=== PATIENT | female | born 1975 | race Caucasian/White ===

== ENCOUNTER 2016-11-12 11:45 | Emergency (ER) | payer OTHER ==
[~2016-11-12] VITALS: Ht 172.7 cm; Wt 134.4 kg
[2016-11-12 13:32] LABS: HEMATOCRIT 35.6 % (36.0-46.0); MCH 17.1 PG (29.0-34.0); MCV 63.2 FL (83-99); NRBC (%) 0.2 /100 WBC (0-0); RBC DIS.WIDTH-CV 21.4 % (11.8-14.6); RBC DIS.WIDTH-SD 45.1 % (39-53); RED BLOOD COUNT 5.63 M/uL (3.80-5.20)
[2016-11-12 13:35] LABS: CHLORIDE 107 mEq/L (99-109); POTASSIUM 3.5 mEq/L (3.7-5.4); SODIUM 141 mEq/L (136-147)
[2016-11-12 13:37] LABS: GLUCOSE 175 mg/dL (70-99)
[2016-11-12 13:38] LABS: ANION GAP 10 MEQ/L (2-14)
[2016-11-12 13:41] LABS: GFR ESTIMATE (CALCULATED) > 59 mL/min/
[2016-11-12 13:42] LABS: UREA NITROGEN (BUN) 16 mg/dL (9-23)
[2016-11-12 14:04] LABS: PLAT.SUFFICIENCY ADEQUATE; PLATELET COUNT 224 K/uL (156-360)
[2016-11-12] MEDS ORDERED: LEVAQUIN750 MG PO (16:51)
[2016-11-12] MEDS ORDERED: TUSSIONEX PENN473 ML PO (16:51)
[2016-11-12 17:45] VITALS: BP 131/97
[2016-11-12] MEDS ORDERED: OMEPRAZOLE40 M1 PO (17:58)
[2016-11-12] MEDS ORDERED: METOPROLOL TART25 MG PO (17:58)
[2016-11-12] MEDS ORDERED: METFORMIN HCL500 MG PO (17:59)
== END 2016-11-12 18:04 | disposition home or self-care (01) ==
LOC: EME 11:45
DX: J18.9 Pneumonia, unspecified organism (principal); E11.65 Type 2 diabetes mellitus with hyperglycemia; R11.0 Nausea; R19.7 Diarrhea, unspecified; I10 Essential (primary) hypertension; Z79.84 Long term (current) use of oral hypoglycemic drugs
CPT/HCPCS: 71020; 80048; 85027; 99281; 99284

== ENCOUNTER 2017-08-06 08:56 | Emergency (ER) | payer OTHER ==
[~2017-08-06] VITALS: Ht 172.7 cm; Wt 134.6 kg
[~2017-08-06 08:56] MED LIST: LEVAQUIN750 MG PO; METFORMIN HCL500 MG PO; METOPROLOL TART25 MG PO; OMEPRAZOLE40 M1 PO; TUSSIONEX PENN473 ML PO
[2017-08-06] MEDS ORDERED: MONTELUKAST SOD10 MG PO (09:24)
[2017-08-06 09:45] LABS: CHLORIDE 104 mEq/L (99-109); HEMATOCRIT 29.6 % (36.0-46.0); HEMOGLOBIN 7.7 G/DL (11.9-15.5); MCH 15.4 PG (29.0-34.0); MCV 59.2 FL (83-99); NRBC (%) 0.2 /100 WBC (0-0); RBC DIS.WIDTH-CV 21.6 % (11.8-14.6); RBC DIS.WIDTH-SD 42.6 % (39-53); SODIUM 137 mEq/L (136-147); WHITE BLOOD COUNT 8.5 K/uL (4.1-10.2)
[2017-08-06 09:46] LABS: GLUCOSE 148 mg/dL (70-99)
[2017-08-06 09:50] LABS: CREATININE 0.7 mg/dL (0.6-1.3); GFR ESTIMATE (CALCULATED) > 59 mL/min/
[2017-08-06 09:51] LABS: UREA NITROGEN (BUN) 10 mg/dL (9-23)
[2017-08-06 10:31] LABS: HEMATOLOGY COMMENT 1 SN; PLAT.SUFFICIENCY ADEQUATE; PLATELET COUNT 220 K/uL (156-360)
[2017-08-06 12:04] VITALS: BP 141/93
[2017-08-09 12:24] LABS: STOOL OCCULT BLD 1ST SPECIMEN NEGATIVE
== END 2017-08-06 12:05 | disposition home or self-care (01) ==
LOC: EME 08:56
PROVIDERS: Emergency Medicine
DX: D64.9 Anemia, unspecified (principal); I10 Essential (primary) hypertension; Z79.84 Long term (current) use of oral hypoglycemic drugs
CPT/HCPCS: 80048; 82272; 85027; 86850; 86900; 86901; 99281; 99283

== ENCOUNTER → 2017-09-06 | Outpatient (CLI) | payer OTHER ==
[~2017-09-06] VITALS: Ht 172.7 cm; Wt 136.0 kg
[~2017-09-06] MED LIST changes: +DIOVAN160 MG PO; +GLUCOPHAGE500 MG PO; +MONTELUKAST SOD10 MG PO; +SERTRALINE HCL50 MG PO; +SINGULAIR10 MG PO; +SYMBICORT60 INHALAT IH; +TOPROL XL25 MG PO; +VENTOLIN HFA18 GM IH
== END | disposition home or self-care (01) ==
LOC: AMB 11:30
PROVIDERS: Internal Medicine
DX: D50.9 Iron deficiency anemia, unspecified (principal); K44.9 Diaphragmatic hernia without obstruction or gangrene; K64.8 Other hemorrhoids; K21.9 Gastro-esophageal reflux disease without esophagitis; I10 Essential (primary) hypertension; E66.01 Morbid (severe) obesity due to excess calories; Z68.41 Body mass index [BMI] 40.0-44.9, adult; Z79.84 Long term (current) use of oral hypoglycemic drugs
CPT/HCPCS: 82948; 88305; J2250

== ENCOUNTER 2017-09-24 06:53 | Day surgery (SDC) | payer OTHER ==
[~2017-09-24] VITALS: Ht 172.7 cm; Wt 131.5 kg
[2017-09-24 07:31] VITALS: BP 131/85
[2017-09-24 11:32] VITALS: BP 159/91
[2017-09-24 12:24] VITALS: BP 151/89
== END 2017-09-24 12:25 | disposition home or self-care (01) ==
LOC: SDC 06:53
PROVIDERS: Obstetrics & Gynecology
DX: N92.0 Excessive and frequent menstruation with regular cycle (principal); D50.0 Iron deficiency anemia secondary to blood loss (chronic); N90.89 Other specified noninflammatory disorders of vulva and perineum; E66.01 Morbid (severe) obesity due to excess calories; Z68.42 Body mass index [BMI] 45.0-49.9, adult; I10 Essential (primary) hypertension; K21.9 Gastro-esophageal reflux disease without esophagitis; Z79.84 Long term (current) use of oral hypoglycemic drugs
CPT/HCPCS: 82948; 88304; 88305; J0131; J0330; J0690; J1100; J1170; J2250; J2405